=== PATIENT | female | born 1975 | race Caucasian/White ===

== ENCOUNTER 2024-06-15 11:29 | Emergency (ER) | payer BC, SELFPAY ==
[2024-06-15 11:30] VITALS: BMI 20.4
[2024-06-15 11:33] VITALS: BP 102/73
[2024-06-15 12:00] VITALS: BP 114/74
[2024-06-15] MEDS: MAGNESIUM SULFATE 50 IV (13:10)
[2024-06-15] MEDS: REGLAN 10 MG IV (13:14)
[2024-06-15] MEDS: TORADOL 15 MG IV (13:14)
[2024-06-15] MEDS: DEPACON 55 MG IV (14:20)
--- NOTE | 2024-06-15 14:48 | ED.GENMED ---
History of Present Illness
General
Chief Complaint: Headache
Time Seen by Provider: 06/15/24 12:43
History of Present Illness
History of Present Illness:
48-year-old female with history of migraines presents the emergency department for evaluation of intractable migraine for the past 6 days. Has been using prednisone and tizanidine with no relief. Also use Nurtec this morning. No associated fevers
or chills. No visual changes but does have photophobia. Headache was gradual in onset. Pain pattern is typical for her normal migraines
Review of Systems
Review of Systems
Allergies reviewed?: Yes
All Other Systems: ROS reviewed and negative except as documented in HPI and ROS
Phy Exam
Physical Exam
Physical Exam:
GEN: Well appearing, NAD, WDWN
HEENT: Oral mucosa moist, no scleral icterus
Cardiac: Regular rate
Lung: No respiratory distress, no tachypnea
MSK: No gross deformity or injuries
Skin: Good color, no pallor or jaundice, no rashes
Neuro: AO x3, moves all extremities freely
Psych: Calm, cooperative
Course
Orders/Labs/Results
Orders:
Orders
06/15/24 13:08
Ketorolac [Toradol] 15 mg IV NOW STA
Magnesium Sulfate 2 Gram/50 ml [Magnesium Sulfate] 2 gram in 50 ml IV NOW
Metoclopramide [Reglan] 10 mg IV NOW STA
06/15/24 14:19
Valproate Sodium [Depacon] 500 mg 0.9% Sodium Chloride 50 ml [Nss] 50 ml IV NOW
Vital Signs
Initial and Last Documented VS:
Initial Vital Signs
Temp Pulse Resp BP Pulse Ox
98.2 F 80 16 102/73 99
06/15/24 11:33 06/15/24 11:33 06/15/24 11:33 06/15/24 11:33 06/15/24 11:33
Last Documented Vital Signs
Temp Pulse Resp BP Pulse Ox
98.2 F 77 18 114/74 99
06/15/24 11:33 06/15/24 12:00 06/15/24 12:00 06/15/24 12:00 06/15/24 12:00
MDM/Problems Addressed
MDM/Problems Addressed:
Headache essentially resolved with migraine treatment including valproate in the ED. No concerning features that would warrant imaging at this time. Discharged in stable condition
*Critical Care Note
Total Time (30-74mins, 75-104mins- exclusive of procedures): Not Applicable
ED Attending Note
-
Portions of this chart may have been created with voice recognition software.� Occasional wrong word or��sound alike� substitutions may have occurred due to the inherent limitations of voice recognition software.
Discharge Plan
Departure
Patient Disposition: Home (Routine Discharge)
Date of Disposition: 06/15/24
Time of Disposition: 14:58
Patient with high blood pressure during this ER visit?: No
Discharge Problem:
Migraine
Instructions: Migraines (DC)
Prescriptions:
No Action
cefdinir 300 mg capsule
300 mg PO BID Qty: 14 0RF
Referrals:
Rian Person, DO [Family Provider] -
Interventions
Interventions:
*Risk Screen - Suicide Last Done: 06/15/24 11:33
*General Assessment Last Done: 06/15/24 11:33
*Neglect/Abuse Screening Last Done: 06/15/24 13:25
ED- Fall Risk Assessment Last Done: 06/15/24 13:25
*ED COVID-19 Vaccine History Last Done: 06/15/24 11:33
*Nursing Disposition Last Done: 06/15/24 15:04
ED- Neurological Assessment Last Done: 06/15/24 13:25
Discharge Date and Time
Discharge Date/Time: 06/15/24 15:04
Print Language: KOREAN
== END 2024-06-15 15:04 | disposition home or self-care (01) ==
LOC: EMR 11:29
PROVIDERS: EMERGENCY PHYSICIAN Student in an Organized Health Care Education/Training Program; FAMILY PHYSICIAN Family Medicine
DX: G43.909 Migraine, unspecified, not intractable, without status migrainosus (principal)
CPT/HCPCS: 96365; 96367; 96375; 99284